=== PATIENT | male | born 1930 | race Caucasian/White ===

== ENCOUNTER → 2017-04-04 | Outpatient (CLI) | payer MEDICARE, SELFPAY ==
[~2017-04-04] MED LIST: ASPI81CH; ASPI81CH PO; FERR325 PO; FEXPSEER PO; FISH1000; FOSI10; Fosinopril Sodi20 MG PO; Hydrocodone-Ap1 EA23 PO; Indapamide1.25 MG PO; LAVAP17G PO; LOSA50 PO; Norco 5-325 Ta1 EACH PO; PANT40 PO; PREVACID; PRILOSEC-OTC; PSYL5.85P PO; Ultram50 MG PO; ZAFI20; ZAFI20 PO; [UNRECOGNIZED DRUG - OTHER]; [UNRECOGNIZED DRUG - OTHER]; [UNRECOGNIZED DRUG - OTHER]
== END | disposition home or self-care (01) ==
LOC: LAB SHORT 09:07 → PLD 09:07
DX: D48.5 Neoplasm of uncertain behavior of skin (principal); L82.1 Other seborrheic keratosis
CPT/HCPCS: 88305

== ENCOUNTER → 2017-10-06 | Outpatient (CLI) | payer MEDICARE, SELFPAY ==
[2017-10-06 09:56] LABS: BASOPHILS ABSOLUTE AUTO 0.02 K/mm3 (0.00-0.23); BASOPHILS PERCENT AUTO 0 % (0-2); EOSINOPHILS ABSOLUTE AUTO 0.28 K/mm3 (0.00-0.68); EOSINOPHILS PERCENT AUTO 5 % (0-6); Hematocrit 40.6 % (37.0-53.0); Hemoglobin 13.7 g/dL (13.5-17.5); IMMATURE GRAN ABSOLUTE AUTO 0.02 K/mm3 (0.00-0.10); IMMATURE GRAN PERCENT AUTO 0 % (0-1); LYMPHOCYTES ABSOLUTE AUTO 1.04 K/mm3 (0.84-5.20); LYMPHOCYTES PERCENT AUTO 19 % (21-46); MONOCYTES ABSOLUTE AUTO 0.51 K/mm3 (0.16-1.47); MONOCYTES PERCENT AUTO 9 % (4-13); Mean Corpuscular HGB Conc 33.7 g/dL (31.5-36.5); Mean Corpuscular Volume 95 fL (80-100); Mean Platelet Volume 10.6 fL (9.1-12.4); NEUTROPHILS ABSOLUTE AUTO 3.61 K/mm3 (1.96-9.15); NEUTROPHILS PERCENT AUTO 66 % (41-73); Platelet Count 171 K/mm3 (150-400); RDW Coefficient Variation 14.2 % (11.7-14.2); RDW Standard Deviation 49.1 fL (35.1-46.3); Red Blood Cell Count 4.28 M/mm3 (4.30-5.90); White Blood Cell Count 5.48 K/mm3 (4.00-11.30)
[2017-10-06 10:09] LABS: Alanine Aminotransfer (ALT/SGP 22 U/L (12-78); Albumin, Blood 3.9 g/dL (3.4-5.0); Albumin/Globulin Ratio 1.1 (0.8-1.8); Alk Phos 98 U/L (40-126); Anion Gap 5 mmol/L (6-16); Aspartate Aminotrans (AST/SGOT 20 U/L (12-37); Bilirubin, Total 1.7 mg/dL (0.1-1.0); Blood Urea Nitrogen 12 mg/dL (8-24); Bun/Creatinine Ratio 13.8 (12.0-20.0); CO2, Blood 30 mmol/L (21-32); Calcium, Blood 10.9 mg/dL (8.5-10.1); Chloride, Blood 100 mmol/L (98-108); Creatinine, Blood 0.87 mg/dL (0.60-1.20); Globulin, Blood 3.7 g/dL (2.2-4.0); Glomerular Filtration Rate >60 (60-); Glucose, Blood 112 mg/dL (70-99); Potassium, Blood 3.7 mmol/L (3.5-5.5); Sodium, Blood 135 mmol/L (136-145); Total Protein, Blood 7.6 g/dL (6.4-8.2)
[2017-10-06 10:11] LABS: Troponin I <0.017 ng/mL (0.000-0.040)
[2017-10-06 14:35] LABS: Bilirubin, Direct 0.2 mg/dL (0.0-0.3); Bilirubin, Indirect 1.5 mg/dL (0.1-0.7)
== END | disposition home or self-care (01) ==
LOC: LAB SHORT 09:49 → LAB EV 09:49
PROVIDERS: Physician Assistant
DX: E80.6 Other disorders of bilirubin metabolism (principal); R07.9 Chest pain, unspecified
CPT/HCPCS: 80053; 82247; 82248; 83880; 84484; 85025

== ENCOUNTER → 2017-11-07 | Outpatient (CLI) | payer MEDICARE, SELFPAY | LOC: PLD 10:20 → LAB SHORT 10:20 | DX: L82.1 Other seborrheic keratosis (principal) | CPT/HCPCS: 88305 ==

== ENCOUNTER → 2018-05-08 | Outpatient (CLI) | payer MEDICARE, OTHER | END | disposition home or self-care (01) | LOC: LAB SHORT 13:59 → PLD 13:59 | DX: L82.1 Other seborrheic keratosis (principal); D48.5 Neoplasm of uncertain behavior of skin | CPT/HCPCS: 88305 ==

== ENCOUNTER 2018-06-11 17:20 | Emergency (ER) | payer MEDICARE, OTHER ==
[~2018-06-11] VITALS: Ht 182.9 cm; Wt 86.2 kg
[~2018-06-11 17:20] MED LIST changes: -ALLER-FEX180 MG PO; -CHOL10002 PO; -CYAN500 PO; -FISH OIL 1,2001 EACH PO; -GABA100 PO; -Indapamide2.5 MG PO; -LOSA25 PO; -MONTELUKAST SOD10 MG PO
[2018-06-11 17:58] LABS: BASOPHILS ABSOLUTE AUTO 0.02 K/mm3 (0.00-0.23); BASOPHILS PERCENT AUTO 0 % (0-2); EOSINOPHILS ABSOLUTE AUTO 0.33 K/mm3 (0.00-0.68); EOSINOPHILS PERCENT AUTO 7 % (0-6); Hematocrit 42.9 % (37.0-53.0); Hemoglobin 14.2 g/dL (13.5-17.5); IMMATURE GRAN ABSOLUTE AUTO 0.01 K/mm3 (0.00-0.10); IMMATURE GRAN PERCENT AUTO 0 % (0-1); LYMPHOCYTES PERCENT AUTO 34 % (21-46); MONOCYTES PERCENT AUTO 9 % (4-13); Mean Corpuscular HGB 31.4 pg (26.0-34.0); Mean Corpuscular HGB Conc 33.1 g/dL (31.5-36.5); Mean Corpuscular Volume 95 fL (80-100); Mean Platelet Volume 10.5 fL (9.1-12.4); NEUTROPHILS ABSOLUTE AUTO 2.33 K/mm3 (1.96-9.15); NEUTROPHILS PERCENT AUTO 50 % (41-73); Platelet Count 157 K/mm3 (150-400); RDW Coefficient Variation 14.8 % (11.7-14.2); RDW Standard Deviation 51.7 fL (35.1-46.3); Red Blood Cell Count 4.52 M/mm3 (4.30-5.90); White Blood Cell Count 4.69 K/mm3 (4.00-11.30)
[2018-06-11 18:14] LABS: Alanine Aminotransfer (ALT/SGP 20 U/L (12-78); Albumin, Blood 3.8 g/dL (3.4-5.0); Alk Phos 108 U/L (50-136); Anion Gap 6 mmol/L (6-16); Aspartate Aminotrans (AST/SGOT 16 U/L (12-37); Blood Urea Nitrogen 12 mg/dL (8-24); Bun/Creatinine Ratio 18.1 (12.0-20.0); CO2, Blood 28 mmol/L (21-32); Calcium, Blood 10.3 mg/dL (8.5-10.1); Chloride, Blood 101 mmol/L (98-108); Creatinine, Blood 0.66 mg/dL (0.60-1.20); Globulin, Blood 3.7 g/dL (2.2-4.0); Glomerular Filtration Rate >60 (60-); Glucose, Blood 112 mg/dL (70-99); Potassium, Blood 3.5 mmol/L (3.5-5.5); Sodium, Blood 135 mmol/L (136-145); Total Protein, Blood 7.5 g/dL (6.4-8.2); Troponin I <0.015 ng/mL (0.000-0.040)
[2018-06-11] MEDS ORDERED: Indapamide2.5 MG PO (20:52)
[2018-06-11] MEDS ORDERED: PANT40 PO (20:52)
[2018-06-11] MEDS ORDERED: MONTELUKAST SOD10 MG PO (20:52)
[2018-06-11] MEDS ORDERED: LOSA25 PO (20:52)
[2018-06-11] MEDS ORDERED: FISH OIL 1,2001 EACH PO (20:53)
[2018-06-11] MEDS ORDERED: CHOL10002 PO (20:53)
[2018-06-11] MEDS ORDERED: CYAN500 PO (20:53)
[2018-06-11] MEDS ORDERED: GABA100 PO (20:53)
[2018-06-11] MEDS ORDERED: ALLER-FEX180 MG PO (20:54)
== END 2018-06-11 22:03 | disposition home or self-care (01) ==
LOC: ER 17:20
PROVIDERS: Physician Assistant
DX: R07.9 Chest pain, unspecified (principal); Z88.8 Allergy status to other drugs, medicaments and biological substances; Z91.048 Other nonmedicinal substance allergy status; Z88.2 Allergy status to sulfonamides; Z88.0 Allergy status to penicillin; Z79.899 Other long term (current) drug therapy; Z87.891 Personal history of nicotine dependence
CPT/HCPCS: 36415; 71046; 80053; 83880; 84484; 85025; 93005; 93010; 99285-25

== ENCOUNTER → 2018-06-11 | Outpatient (CLI) | payer MEDICARE, OTHER ==
[~2018-06-11] MED LIST changes: +ALLER-FEX180 MG PO; +CHOL10002 PO; +CYAN500 PO; +FISH OIL 1,2001 EACH PO; +GABA100 PO; +Indapamide2.5 MG PO; +LOSA25 PO; +MONTELUKAST SOD10 MG PO
== END | disposition home or self-care (01) ==
LOC: LAB SHORT 14:50 → PLD 14:50
DX: D48.5 Neoplasm of uncertain behavior of skin (principal)
CPT/HCPCS: 88304

== ENCOUNTER → 2018-06-25 | Outpatient (CLI) | payer MEDICARE, OTHER ==
[~2018-06-25] MED LIST changes: +ALLER-FEX180 MG PO; +CHOL10002 PO; +CYAN500 PO; +FISH OIL 1,2001 EACH PO; +GABA100 PO; +Indapamide2.5 MG PO; +LOSA25 PO; +MONTELUKAST SOD10 MG PO
== END | disposition home or self-care (01) ==
LOC: LAB SHORT 08:03 → PLD 08:03
DX: D48.5 Neoplasm of uncertain behavior of skin (principal)
CPT/HCPCS: 88305

== ENCOUNTER → 2018-11-20 | Outpatient (CLI) | payer MEDICARE, OTHER | END | disposition home or self-care (01) | LOC: LAB SHORT 08:13 → PLD 08:13 | DX: L72.9 Follicular cyst of the skin and subcutaneous tissue, unspecified (principal) | CPT/HCPCS: 88304 ==